=== PATIENT | female | born 1970 | race Caucasian/White ===

== ENCOUNTER 2017-08-25 | Emergency (ER) | payer OTHER ==
--- NOTE | 2017-08-25 18:39 | ED Physician Documentation ---
General Adult - HISTORIAN Historian: patient - HPI Chief Complaint: Skin Rash Additional Information: Patient states that she was over at her son's house cleaning yesterday because he has been diagnosis with scabies. Now she has started to break out with a rash of red bumps, and is concerned that she might be getting scabies. 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 Onset: hours (12 hours) Timing: still present, worse - ROS CONST: no problems. denies: fever, chills - PAST HX Past History: none Other History: none Surgeries/Procedures: none Allergies/Adverse Reactions: Allergies Allergy/AdvReac Type Severity Reaction Status Date / Time No Known Allergies Allergy Unverified 08/25/17 18:36 Home Medications: Ambulatory Orders Medication Instructions Recorded Permethrin [Lice Cream Rinse] 120 ml TP NOW #120 liquid 08/25/17 - SOCIAL HX Smoking History: non-smoker, less than 1 pack/day Alcohol Use: none Drug Use: none - FAMILY HX Family History: No - REVIEWED ASSESSMENTS Nursing Assessment Reviewed: Yes Vitals Reviewed: Yes Progress - Progress Progress: Patient is real concerned that she has scabies. Advised her that I did not feel that the rash was scabies but hives. Will treat for both. General Adult Physical Exam - PHYSICAL EXAM GENERAL APPEARANCE: no distress RESPIRATORY: no resp distress, chest non-tender, breath sounds normal. No: wheezes, rales, rhonchi CVS: reg rate & rhythm, heart sounds normal, equal pulses, no murmur BACK: normal inspection, no CVA tenderness SKIN: warm/dry, other (small red bumps, some surrounded be blanching, does welp up soem with pressure. Over upper extremities, back and legs) NEURO: oriented X3, mood/affect nml, cognition normal Discharge Clincal Impression: Rash Referrals: Alessandro Castillo MD [Primary Care Provider] - 2 Days Additional Instructions: Since you have been exposed to scabies use premethrin as directed. I beleive this rash may be in fact hives. Yuo might want to try benadryl 25 -50mg every 4- 6 hours. May cause drowsiness. Condition: Stable Disposition: 01 HOME, SELF-CARE Decision to Admit: NO Date of Decison to Admit: 08/25/17 Decision Time: 18:57
== END 2017-08-25 19:10 | disposition home or self-care (01) ==
DX: R21 Rash and other nonspecific skin eruption (principal)
CPT/HCPCS: 99282